=== PATIENT | male | born 2000 | race Caucasian/White ===

== ENCOUNTER 2018-02-18 04:30 | Inpatient (IN) | payer SELFPAY ==
[2018-02-18 05:29] LABS: ABS Basophils 0 10^3/ul (0-0.2); ABS Eosinophils 0.1 10^3/ul (0-0.6); ABS Monocytes 0.6 10^3/ul (0-0.8); ABS Neutrophils 3.3 10^3/ul (1.5-7.7); ABS Nucleated RBC 0 10^3/ul; Eosinophil % 2.3 % (0-6); Hematocrit 41 % (42-52); Hemoglobin 14.4 g/dl (14.0-18.0); Lymphocyte % 32.2 % (25-47); Mean Corpuscular HGB Conc 35 g/dl (31-36); Mean Corpuscular Hemoglobin 31 pg (27-31); Mean Corpuscular Volume 86 fL (80-94); Mean Platelet Volume 9.4 um3 (7.4-10.4); Nucleated Red Blood Cells % 0.1; Platelet Count 108 10^3/ul (150-450); Red Blood Count 4.74 10^6/ul (4.0-5.4); Red Cell Distribution Width 13 % (10.5-15); White Blood Count 6.1 10^3/ul (3.5-10.8)
[2018-02-18 05:38] LABS: EGFR Non-African American 104.7 (>60)
[2018-02-18 05:44] LABS: Urine Appearance Clear; Urine Blood Negative (Negative); Urine Color Yellow; Urine Ketones 1+ (Negative); Urine Protein Negative (Negative); Urine Specific Gravity 1.034 (1.010-1.030); Urine Urobilinogen Positive (Negative)
--- NOTE | 2018-02-18 07:02 | ED ---
Familia Kolb Abhishek, scribed for Chris Zuniga MD on 02/18/18 at 0545 . Psychiatric Complaint - HPI Summary HPI Summary: The pt is a 17 y/o male presenting to the [facility] with a chief complaint of depression. The pt recently broke up with his girlfriend 1 month ago. Currently , his ex-girlfriend is "ghosting him" and that she has not talked to him; reportedly by the pt. Also according to the pt, he "scratched" himself with his keys (on his arms) recently and had the intention to hurt himself. Pt claims he "snapped." He was refereed to the [facility] by his ex-girlfriend in order to seek him in order to "better himself." Pt states he does not have a therapist and has PMHx of anxiety and depression which he is not receiving any medication for. Pt denies SI and HI. He denies SHx of substance abuse and states he is an occasional drinker. Symptoms are aggravated by recent stress. Symptoms are alleviated by nothing. - History Of Current Complaint Chief Complaint: [facility]ental[facility] Time Seen by Provider: 02/18/18 04:49 Hx Obtained From: Patient Onset/Duration: Lasting Weeks - since one month ago, Still Present Severity Currently: None Character: Depressed, Anxious Aggravating Factor(s): Recent Stress Alleviating Factor(s): Nothing Associated Signs And Symptoms: Positive: Negative Related History: Positive For: Prior Psychiatric Issues - depression and anxiety Has Suicidal: Denies: Thoughts Has Homicidal: Denies: Thoughts PMH/Surg Hx/FS Hx/Imm Hx Sensory History: Denies: Hx Vision Problem Opthamlomology History: Denies: Hx Legally Blind Psychiatric History: Reports: Hx Anxiety, Hx Depression Infectious Disease History: No Infectious Disease History: Denies: Traveled Outside the [place] in Last 30 Days - Family History Known Family History: Positive: None - Reviewed and Noncontributory - Social History Alcohol Use: Occasionally Substance Use Type: Reports: None Smoking Status (MU): Never Smoked Tobacco Review of Systems Constitutional: Negative Eyes: Negative ENT: Negative Cardiovascular: Negative Respiratory: Negative Gastrointestinal: Negative Genitourinary: Negative Musculoskeletal: Negative Skin: Other - "Scratches" to the arms Neurological: Negative Positive: Anxious, Depressed All Other Systems Reviewed And Are Negative: Yes Physical Exam - Summary Physical Exam Summary: Appearance: Well appearing, no pain distress Skin: warm, dry, reflects adequate perfusion, very superficial abrasions to the left arm that are healing Head/face: normal Eyes: EOMI, DEMARCO ENT: normal Neck: supple, non-tender Respiratory: CTA, breath sounds present Cardiovascular: RRR, pulses symmetrical Abdomen: non-tender, soft Bowel Sounds: present Musculoskeletal: normal, strength/ROM intact Neuro: normal, sensory motor intact, A&Ox3 Triage Information Reviewed: Yes Vital Signs On Initial Exam: Initial Vitals Temp Pulse Resp BP Pulse Ox 99.5 F 70 18 120/79 98 02/18/18 04:38 02/18/18 04:38 02/18/18 04:38 02/18/18 04:38 02/18/18 04:38 Vital Signs Reviewed: Yes Diagnostics - Vital Signs Vital Signs Temp Pulse Resp BP Pulse Ox 02/18/18 04:38 99.5 F 70 18 120/79 98 - Laboratory Lab Results: Lab Results 02/18/18 Range/Units 05:10 WBC 6.1 (3.5-10.8) 10^3/ul RBC 4.74 (4.0-5.4) 10^6/ul Hgb 14.4 (14.0-18.0) g/dl Hct 41 L (42-52) % MCV 86 (80-94) fL MCH 31 (27-31) pg MCHC 35 (31-36) g/dl RDW 13 (10.5-15) % Plt Count 108 L (150-450) 10^3/ul MPV 9.4 (7.4-10.4) um3 Neut % (Auto) 54.2 (38-83) % Lymph % (Auto) 32.2 (25-47) % Hodgeman % (Auto) 10.6 H (0-7) % Eos % (Auto) 2.3 (0-6) % Baso % (Auto) 0.7 (0-2) % Absolute Neuts (auto) 3.3 (1.5-7.7) 10^3/ul Absolute Lymphs (auto) 2.0 (1.0-4.8) 10^3/ul Absolute Monos (auto) 0.6 (0-0.8) 10^3/ul Absolute Eos (auto) 0.1 (0-0.6) 10^3/ul Absolute Basos (auto) 0 (0-0.2) 10^3/ul Absolute Nucleated RBC 0 10^3/ul Nucleated RBC % 0.1 Result Diagrams: 02/18/18 05:10 02/18/18 05:10 Lab Statement: Any lab studies that have been ordered have been reviewed, and results considered in the medical decision making process. Course/Dx - Course Course Of Treatment: pt medically cleared and completed MH crisis eval. Contracts for safety. No SI/HI. Arranged outpt f/u at [facility]. Pt has not shown in the past. Cleared for discharge by psychiatrist. - Differential Dx/Clinical Impression Provider Diagnosis: Adjustment disorder with disturbance of emotion Discharge - Sign-Out/Discharge Documenting (check all that apply): Discharge - Discharge to f/u at [facility] counseling - Discharge Plan Condition: Good Disposition: HOME Referrals: No Primary Care Phys,NOPCP [Primary Care Provider] - - Billing Disposition and Condition Condition: GOOD Disposition: HOME The documentation as recorded by the Familia watson Abhishek accurately reflects the service I personally performed and the decisions made by Efrain huffman Kirk, MD.
--- NOTE | 2018-02-18 12:10 | PN ---
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 He broke up with his girlfriend about a month ago, which is causing him stress. He has ignored texts from friends. He reports that a few days ago after being blocked on social media by his girlfriend he took his keys and impulsively scratched himself. He is failing all of his classes (reported GPA .98 this past semester). Objective: [Alert, oriented x 4, agrees that he is highly distressed and contemplating suicide. ] Assessment: [Acutely suicidal patient] Plan: [Admit to [facility] for safety, observation, evaluation and treatment]
[2018-02-18] MEDS ORDERED: Acetaminophen TAB* 325 MG PO PRN (15:47)
[2018-02-18] MEDS ORDERED: Al Hydrox/Mg Hydrox/Simet LIQ* 30 ML UDC PO PRN (15:47)
[2018-02-19 07:55] VITALS: BP 119/67
[2018-02-19] MEDS ORDERED: Vitamin THERAPEUTIC TAB PO SCH (09:00)
--- NOTE | 2018-02-19 13:10 | PN ---
[facility]: Group Therapy Note - Service Type Service Type: 54862 Group Psychotherapy - Cognitive Behavioral Group Therapy ( CBT):Patient presented in CBT programming as disorganized and disruptive in discussion and needed repeated redirection to attend to presented materials.
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
--- NOTE | 2018-02-20 07:46 | DS ---
DISCHARGE SUMMARY: DATE OF ADMISSION: 02/18/18 DATE OF DISCHARGE: 02/19/18 PROVIDER: Ana Luisa Martell NP, in Psychiatry. SUPERVISING PHYSICIAN: Dr. Bharat Huizar.* (DICTATED BY ANA LUISA MARTELL NP) DIAGNOSES: [place] I: Generalized anxiety disorder. [place] II: Cluster B traits. [place] III: Denies any physical problems. CONDITION AT THE TIME OF DISCHARGE: Levon is psychiatrically cleared. He is stable. He tended to stay to himself and was minimally social with peers. His family is agreeable to discharge. He has done well here psychiatrically and tolerated the somewhat difficult to manage milieu. He is going to be attending [facility] [employer] [facility]. MENTAL STATUS EXAM: At the time of discharge, Levon is calm, cooperative, his eye contact is good. He is alert and oriented x3. His grooming is adequate. His speech is of normal rate, rhythm, and volume. Thought processes are logical. He is not psychotic, he is not delusional. He denies AH, VH, SI, HI. Insight and judgment are fair to good. He is willing to follow up at [facility] and he is urged to see a therapist. DISCHARGE INSTRUCTIONS TO THE PATIENT: A. Medications: Levon was not prescribed medications during this admission. B. Diet: Regular. C. Activities: As tolerated. Levon is a nonsmoker. There are no studies pending at the time of discharge. D. Followup care: He has appointments with [facility]. E. Substance abuse followup: Not indicated at this time. HOSPITAL COURSE: Part A: The patient is a 17-year-old, single, white male with a history of anxiety, self-harm, and reported suicidal ideation, who arrives 9.41 status after his ex-girlfriend called the [address] after she got a message that said "I don't want to live anymore." Levon is young. He behaves in a young fashion. He has scratched his arm with a duarte, they are superficial scratches. He has scratch reed on his chest from trying to tear his clothes off when he was having an anxiety attack and he felt that the clothes were constricting him. He has an ex-girlfriend, who he is pursuing non- stop it would seem. She has filed an order of protection or [id number] order against him and he does not seem to understand that that means that she is no longer in his life. Nevertheless, he says that she is not his primary support, that a man named Avel is his primary support person and he plans on living with him, now that he has been ordered to leave school due to having a 0.98 GPA. He does not seem upset about any of this. He is taking it all in stride and seems to think that things will work out in the end and he has kind of a cosmic view about this. His stressors include breaking up with the girlfriend, low GPA, being kicked out of school, and not having a place to live. As far as his symptoms go, he states that the only active symptom he has right now is of anxiety, which seems to be a low level constant for him. He does not state that he worries, but he does have muscle tension. He is restless and his sleep is disturbed.. Part B: Psychiatric treatment was rendered and the patient was admitted to the adult behavioral unit and placed on 15-minute checks for safety. The patient did well on the unit in that there were no difficult behaviors, but he did not go to groups. He was minimally interactive with peers. There were no med changes. No meds were started. His mother did visit there. There were no consults. He is improved in that he reports understanding that he is an impulsive person. He will benefit significantly from outpatient treatment. ANA LUISA MARTELL, THEO [id number]/CPS #: [id number] HAIDER
== END 2018-02-19 15:05 | disposition home or self-care (01) | DRG 880 ==
LOC: ED 04:30 → BSU 16:19
PROVIDERS: ADMIT Psychiatry & Neurology Psychiatry; ATTEND Psychiatry & Neurology Psychiatry
PROC: GZHZZZZ Group Psychotherapy (ICD-10-PCS; principal; 2018-02-18)
DX: F41.1 Generalized anxiety disorder (principal); R45.851 Suicidal ideations; F12.90 Cannabis use, unspecified, uncomplicated; F32.9 Major depressive disorder, single episode, unspecified; S40.812A Abrasion of left upper arm, initial encounter; X78.8XXA Intentional self-harm by other sharp object, initial encounter; Y92.9 Unspecified place or not applicable; Z91.5 Personal history of self-harm; Z72.89 Other problems related to lifestyle
CPT/HCPCS: 36415; 80053; 80061; 80307; 80320; 80329; 81003; 83036; 84443; 85025; 99284; A9270-GY; G0480